=== PATIENT | male | born 1965 | race Hispanic/Latino ===

== ENCOUNTER 2018-04-19 07:30 | Emergency (ER) | payer OTHER ==
[2018-04-19] MEDS ORDERED: Lidocaine 1% 20 ML MDV ONE (07:37)
[2018-04-19] MEDS ORDERED: Adacel (T-DAP) 0.5 ML VIAL ONE (07:42)
[2018-04-19] MEDS ORDERED: Bacitracin Zinc 1 Packet ONE ×2 (07:57→08:25)
== END 2018-04-19 08:05 | disposition home or self-care (01) ==
LOC: NAV ERS 07:30
DX: S01.81XA Laceration without foreign body of other part of head, initial encounter (principal); E78.5 Hyperlipidemia, unspecified; W22.8XXA Striking against or struck by other objects, initial encounter
CPT/HCPCS: 12013; 90471; 90715; 99001; J2001